=== PATIENT | male | born 1970 | race Caucasian/White ===

== ENCOUNTER 2020-04-15 10:08 | Emergency (ER) | payer OTHER ==
[2020-04-15 10:24] VITALS: RESP 18
[2020-04-15] MEDS ORDERED: ORPHENADRINE 30 MG/ML 2 ML VIAL IVP STA (10:40)
[2020-04-15] MEDS ORDERED: HYDROmorphone 1 MG/ML 1 ML SYRINGE IVP STA (10:40)
[2020-04-15] MEDS ORDERED: KETOROLAC 15 MG/ML 1 ML VIAL IVP STA (10:40)
--- NOTE | 2020-04-15 10:51 | ED ---
Back Pain HPI - General Chief Complaint: Back Pain/Injury Stated Complaint: Back Pain Time Seen by Provider: 04/15/20 10:29 Source: patient, RN notes reviewed Limitations: no limitations - History of Present Illness Initial Comments: 49-year-old male presents emergency Department with chief complaint of low back pain this has been going on for last 2-3 weeks. Patient states he has no back problems in the past. No prior surgeries. Patient denies any bowel, bladder incontinence or retention. Denies any saddle anesthesias or lower shunted paresthesias. Patient has pain in his right lower lumbar region and radiates down his right leg to his heel. Patient has been seen by several times ice PCP in which they did x-rays, given one shot of steroids, written prescription for [place]. Patient was given a prescription for an MRI but presents emergency Department as directed by PCP for pain control. 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 Patient states that he has a lot of wear and tear in his back. - Related Data Home Medications Medication Instructions Recorded Confirmed Aspirin EC [Ecotrin] 325 mg PO DAILY PRN 04/15/20 04/15/20 Previous Rx's Medication Instructions Recorded Orphenadrine [Norflex] 100 mg PO Q12H #14 tablet.er 04/15/20 predniSONE 50 mg PO DAILY #5 tab 04/15/20 Allergies Allergy/AdvReac Type Severity Reaction Status Date / Time No Known Allergies Allergy Verified 04/15/20 11:41 Review of Systems ROS Statement: Those systems with pertinent positive or pertinent negative responses have been documented in the HPI. ROS Other: All systems not noted in ROS Statement are negative. Past Medical History Past Medical History: No Reported History History of Any Multi-Drug Resistant Organisms: None Reported Past Surgical History: No Surgical Hx Reported Past Psychological History: No Psychological Hx Reported Smoking Status: Current every day smoker Past Alcohol Use History: None Reported Past Drug Use History: None Reported General Exam Limitations: no limitations General appearance: alert, in no apparent distress Head exam: Present: atraumatic, normocephalic, normal inspection Eye exam: Present: normal appearance, PERRL, EOMI. Absent: scleral icterus, conjunctival injection, periorbital swelling Neck exam: Present: normal inspection, full ROM. Absent: tenderness, meningismus, lymphadenopathy Respiratory exam: Present: normal lung sounds bilaterally. Absent: respiratory distress, wheezes, rales, rhonchi, stridor Cardiovascular Exam: Present: regular rate, normal rhythm, normal heart sounds. Absent: systolic murmur, diastolic murmur, rubs, gallop, clicks GI/Abdominal exam: Present: soft, normal bowel sounds. Absent: distended, tenderness, guarding, rebound, rigid Extremities exam: Present: other (lower extremity strength equal bilaterally, equal color equal warmth,strength is equal bilaterally patient does report pain with range of motion of right leg) Back exam: Present: normal inspection, tenderness, muscle spasm, paraspinal tenderness. Absent: full ROM (decreased range of motion secondary pain), vertebral tenderness Neurological exam: Present: alert, oriented X3, reflexes normal. Absent: motor sensory deficit Skin exam: Present: warm, dry, intact, normal color. Absent: rash Course Vital Signs 04/15/20 10:21 Temperature 98.8 F Pulse Rate 84 Respiratory 18 Rate Blood Pressure 139/91 O2 Sat by Pulse 98 Oximetry Medical Decision Making - Medical Decision Making patient reevaluated after pain meds patient is resting comfortably, patient was in the room patient states his pain is improved. Patient has no red flag symptoms. Patient advised to call MRI scheduling for an appointment. He is return for any worsening change in symptoms. Disposition Clinical Impression: Lumbar radiculopathy, acute Disposition: HOME SELF-CARE Condition: Stable Instructions (If sedation given, give patient instructions): Acute Low Back Pain (ED) Additional Instructions: Please return to the Emergency Department if symptoms worsen or any other concerns. Prescriptions: Orphenadrine [Norflex] 100 mg PO Q12H #14 tablet.er predniSONE 50 mg PO DAILY #5 tab Is patient prescribed a controlled substance at d/c from ED?: No Referrals: Joshua Alaniz DO [Primary Care Provider] - 1-2 days Juventino Marquez DO [Doctor of Osteopathic Medicine] - 1-2 days Time of Disposition: 11:45
[2020-04-15 12:11] VITALS: BP 133/81; PULSE 60; TEMP 98
== END 2020-04-15 12:11 | disposition home or self-care (01) ==
LOC: EC 10:08
DX: M54.16 Radiculopathy, lumbar region (principal); F17.200 Nicotine dependence, unspecified, uncomplicated
CPT/HCPCS: 99283; 96374; 96375 ×2; J2360; J1170; J1885

== ENCOUNTER → 2020-04-23 | Outpatient (CLI) | payer OTHER ==
--- NOTE | 2020-04-23 16:45 | MR ---
EXAMINATION TYPE: MR lumbar spine wo con DATE OF EXAM: 04/23/2020 COMPARISON: Film 04/22/2020 HISTORY: Low back pain x 4 weeks TECHNIQUE: Multiplanar, multisequence images of the lumbar spine were acquired. L1-L2: Normal disc appearance without desiccation. No herniation, protrusion or disc bulging. No ca nal stenosis is present. Foramina are patent bilaterally. L2-L3: Normal disc appearance without desiccation. No herniation, protrusion or disc bulging. No ca nal stenosis is present. Foramina are patent bilaterally. L3-L4: Normal disc appearance without desiccation. No herniation, protrusion or disc bulging. No ca nal stenosis is present. Foramina are patent bilaterally. L4-L5: There is loss of disc signal. Increased signal at the posterior aspect of the disc is consiste nt with an annular tear. Right posterior paracentral disc bulge contacts the anterior thecal sac. No significant foraminal encroachment. L5-S1: There is loss of disc signal. There is a right posterior paracentral disc herniation displacin g the right S1 nerve root, circumferential extension toward the right encroaches somewhat on the righ t neural foramen. There is an anterior lateral contact on the thecal sac due to a disc herniation, th ere is some encroachment suspected of the lateral recess Lumbar segments are intact. No paraspinal masses are identified. Conus medullaris has a normal appe arance. Lumbar vertebral bodies show preserved height and alignment. IMPRESSION: Large posterior right paracentral disc herniation L5-S1, degenerative disc disease as described
== END | disposition home or self-care (01) ==
LOC: RADMRIMAIN 06:37
PROVIDERS: ATTEND Orthopaedic Surgery
DX: M51.27 Other intervertebral disc displacement, lumbosacral region (principal); M51.36 Other intervertebral disc degeneration, lumbar region
CPT/HCPCS: 72148

== ENCOUNTER → 2020-04-30 | Outpatient (CLI) | payer OTHER ==
--- NOTE | 2020-04-30 14:14 | XR ---
EXAMINATION TYPE: XR chest 2V DATE OF EXAM: 04/30/2020 CLINICAL HISTORY: R06.2. TECHNIQUE: Frontal and lateral view of the chest. COMPARISON: None FINDINGS: The cardiomediastinal silhouette is within normal limits for size. Pulmonary vasculature i s normal. There is no focal air space opacity, pleural effusion, or pneumothorax seen. The osseous st ructures are intact. IMPRESSION: No acute cardiopulmonary process.
== END | disposition home or self-care (01) ==
LOC: RADXRWHC 10:17
PROVIDERS: ATTEND Internal Medicine
DX: R06.2 Wheezing (principal)
CPT/HCPCS: 71046

== ENCOUNTER → 2020-04-30 | Outpatient (CLI) | payer OTHER ==
[2020-04-30 16:23] LABS: Basophils # (A) 0.1 k/uL (0-0.2); Basophils % (A) 1 %; Eosinophils # (A) 0.2 k/uL (0-0.7); Eosinophils % (A) 2 %; HCT 53.5 % (39.0-53.0); HGB 18.2 gm/dL (13.0-17.5); Lymphocytes # (A) 2.9 k/uL (1.0-4.8); Lymphocytes % (A) 34 %; MCHC 34.1 g/dL (31.0-37.0); MCV 96.9 fL (80.0-100.0); Mean Platelet Volume 6.2; Monocytes # (A) 0.4 k/uL (0-1.0); Monocytes % (A) 4 %; Neutrophils # (A) 5.1 k/uL (1.3-7.7); Neutrophils % (A) 59 %; Platelet Count 230 k/uL (150-450); RBC 5.52 m/uL (4.30-5.90); RDW 13.3 % (11.5-15.5); WBC 8.7 k/uL (3.8-10.6)
[2020-04-30 16:31] LABS: ALT 92 U/L (4-49); AST 32 U/L (17-59); African American GFR (CKD) >90 (>60 ml/min/1.73 sqM); Albumin 4.2 g/dL (3.5-5.0); Alkaline Phosphatase 82 U/L (38-126); Anion Gap 6 mmol/L; Blood Urea Nitrogen 25 mg/dL (9-20); Calcium 9.5 mg/dL (8.4-10.2); Carbon Dioxide 25 mmol/L (22-30); Chloride 106 mmol/L (98-107); Glucose 101 mg/dL (74-99); Non-African American GFR(CKD) 79 (>60 ml/min/1.73 sqM); Potassium 4.4 mmol/L (3.5-5.1); Sodium 137 mmol/L (137-145); Total Bilirubin 0.5 mg/dL (0.2-1.3); Total Protein 6.7 g/dL (6.3-8.2)
[2020-04-30 16:39] LABS: Partial Thromboplastin Time 22.2 sec (22.0-30.0)
[2020-04-30 16:46] LABS: Cholesterol 222 mg/dL (<200); HDL Cholesterol 44 mg/dL (40-60); LDL Cholesterol,Calculated 119 mg/dL (0-99); Triglycerides 296 mg/dL (<150)
[2020-04-30 16:48] LABS: T4, Free (Free Thyroxine) 0.75 ng/dL (0.78-2.19)
== END | disposition home or self-care (01) ==
LOC: LABPAT 15:44
PROVIDERS: ATTEND Internal Medicine
DX: Z00.00 Encounter for general adult medical examination without abnormal findings (principal)
CPT/HCPCS: 36415; 80053; 80061; 83036; 84439; 84443; 85025; 85610; 85730

== ENCOUNTER → 2020-04-30 | Outpatient (CLI) | payer OTHER | END | disposition home or self-care (01) | LOC: LABPAT 10:13 | PROVIDERS: ATTEND Orthopaedic Surgery | DX: Z01.812 Encounter for preprocedural laboratory examination (principal) | CPT/HCPCS: 87070 ==

== ENCOUNTER 2020-05-04 06:09 | Day surgery (SDC) | payer OTHER ==
[2020-04-28 15:46] VITALS: BMI 30.7
[~2020-05-04 06:09] MED LIST: ACETAMINOPHEN TAB 500 MG TAB PO PRN; DEXAMETHASONE SOD PHOSPHATE 4 MG/ML 1 ML VIAL IV ONE; GABAPENTIN 300 MG CAP PO PRN; HYDROmorphone 0.5 MG/0.5 ML SYRINGE IVP PRN; LACTATED RINGERS 1,000 ML IV SCH; LIDOCAINE 1% (10MG/ML) FOR IV START INTRADERMA PRN; MIDAZOLAM 2 MG/2 ML VIAL IV PRN; ONDANSETRON 4 MG/2 ML VIAL IVP ONE; ONDANSETRON 4 MG/2 ML VIAL IVP PRN; TRANEXAMIC ACID 1,000 MG in SODIUM CHLORIDE 0.9% 100 ML IVPB PRN
--- NOTE | 2020-05-04 06:58 | P.HPOR ---
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 Patient denies any specific injury. He states that he has had low back pain for 4 weeks. He reports lower back pain that radiates into both of his legs. He notes that his legs give out when he tries to walk. He has been seen in the Emergency Room due to his back pain. Patient denies any bowel or bladder problems. Patient is taking [place] as needed for pain. Review of Systems 14 points review of systems completed and as stated in HPI, all other systems reviewed are negative. Constitutional: Denies chills, Denies fatigue, Denies fever Past Medical History Past Medical History: GERD/Reflux Additional Past Medical History / Comment(s): Back pain X4 weeks. History of Any Multi-Drug Resistant Organisms: None Reported Past Surgical History: No Surgical Hx Reported Past Anesthesia/Blood Transfusion Reactions: No Reported Reaction Additional Past Anesthesia/Blood Transfusion Reaction / Comment(s): Has never had general anesthesia. Past Psychological History: No Psychological Hx Reported Smoking Status: Current every day smoker Past Alcohol Use History: None Reported Additional Past Alcohol Use History / Comment(s): Has been smoking since 13 yrs old, 2 PPD. Past Drug Use History: Marijuana Additional Drug Use History / Comment(s): Occassionally uses Marajuana for pain. Aware no use 24 hrs prior to procedure. Additional History: Social History: Reviewed, see appropriate section of the chart for details. Social History: Smoking: current smoker. Smoking Amount: 1 PPD. Alcohol: none. . Family History: Reviewed, see appropriate section of the chart for details. Family History: Mother: alive & well. Father: alive & well. Sibling(s): alive & well. . Past Medical History: Reviewed, see appropriate section of the chart for details. none. Surgical / Procedural History: none listed by the patient. Current Medications: Rx: methocarbamoL 750 mg tablet Ref: 0. Instructions: take 1 tablet (750 mg) by oral route 3 times per day. Rx: methocarbamoL 750 mg tablet Ref: 0. Instructions: take 1 tablet (750 mg) by oral route 3 times per day. Rx: [place] Ref: 0. Rx: Orphendrine Ref: 0. Instructions: 100 mg. Rx: predniSONE 50 mg tablet Ref: 0. Instructions: take 0.5 mg/kg by oral route once daily. Rx: predniSONE 20 mg tablet Ref: 0. Instructions: Take 1 tablet twice daily for 4 days, then take 1 tablet once daily for. 4 days. Rx: predniSONE 20 mg tablet Ref: 0. Instructions: Take 1 tablet twice daily for 4 days and then take 1 tablet once daily. for 4 days. - Past Family History Father Family Medical History: No Reported History Medications and Allergies Home Medications Medication Instructions Recorded Confirmed Type Methocarbamol [Robaxin-750] 750 mg PO TID 04/28/20 04/28/20 History Allergies Allergy/AdvReac Type Severity Reaction Status Date / Time No Known Allergies Allergy Verified 04/28/20 15:25 Physical Examination Osteopathic Statement: *. No significant issues noted on an osteopathic structu ral exam other than those noted in the History and Physical/Consult. General: Awake, alert, appropriate for age, in no acute distress. HEENT: No unusual neck masses around region of lateral neck triangle, thyroid, supraclavicular groove Heart: Regular rate and rhythm, normal S1, S2 and no murmur/gallop. Lungs: Clear to auscultation bilaterally with no use of accessory muscles. Extremities: Skin warm and dry without acute lesions, coloration, temperature, skin intact, no tenderness or erythema Integument: Hairy patches: Absent Dorsal skin dimples: Absent Cafe au lait spots: Absent Surgical incisions: None Palpation: Please see Pain drawing on Intake sheet for further detail. Midline spinal tenderness: yes lumbar E6 Paralumbar tenderness: No E6 Parathoracic tenderness: No E6 Buttocks tenderness: No E6 Special findings: None POSTURAL and MUSCULO-SKELETAL EVALUATION: Coronal Balance: Neutral Recumbent testing: Patient is able to lay flat on back Sagittal Balance: Neutral Shoulder Profile: level Pelvic Girdle: level Neck ROM: Unrestricted Lumbar ROM: Unrestricted Shoulder ROM: Symmetric in abduction, ER/IR Hip ROM: Symmetric in abduction, adduction, ER/IR Knee ROM: Symmetric and intact in Flexion / extension Hands: Normal Feet: Normal VASCULAR STATUS : LEFT RIGHT Wrist Pulses intact intact Pedal Pulses (Dors. pedis & post.tibialis) intact intact Color normal normal Edema Absent Absent NEUROLOGIC EXAMINATION: Mental Status: Awake and alert, fully oriented, with normal attention, concentration and memory, and fluent, appropriate speech. Cranial Nerves: I: Olfactory not tested. II: Visual acuity normal, no visual field deficit noted with confrontation. III,IV: Normal pupillary reflexes & intact extraocular movements without nystagmus. V,: Intact symmetrical facial sensation. VII: Intact symmetrical facial motor movement VIII: Hearing intact. IX,X: Intact gag, swallow, & normal voice. XI: Sternocleidomastoid, trapezius function intact. XII: Tongue midline with normal movements. L'hermitte's Sign: Negative / absent Spurling'Sign: Absent bilaterally. Cubital percussion test: Absent bilaterally. Coty-Tinel sign - Carpal region: Absent bilaterally. Straight Leg Raising: Absent bilaterally. Crossed straight leg raise: negative O8 MOTOR EXAM (0-5/5, N/T) STRENGTH RIGHT LEFT Shoulder Abd (not part of the DOROTA score) 5 5 Elbow Flexors 5 5 Elbow Extensor 5 5 Wrist Dorsiflexors 5 5 Finger Abductor 5 5 Assistant Cook 5 5 Hip Flexor (Not part of DOROTA Motor score) 5 5 Knee Flexor 3 4+ Knee Extensor 3 4+ Ankle dorsiflexor 3 4+ Ankle plantarflexion 3 4+ Extensor hallucis 3 4+ REFLEXES(0-4/2, NT) RIGHT LEFT Upper Extremities 3 3 Lower Extremities 2 2 Pathological Reflexes RIGHT LEFT Martínez's Absent Absent Clonus Absent Absent Neg babinski b/l Muscle appearance: Normal Rectal Tone: Not tested Sensory system (0-4, N/T) Test type RU IRASEMA RL LL Joint-Position 2 2 2 2 Vibration 2 2 2 2 Pain & LT sense 2 2 2 2 Dermatomal Deficit: none none none none Gait and Functional Evaluation: Ambulatory aids: Wheelchair Romberg's test: Intact bilaterally Toe heel walk / heel-toe walk intact while maintaining satisfactory balance? No Squatting/straightening w/o assistance to a min of 60 degree knee flexion? No Single leg stance: intact Unable to assess Hand and finger dexterity intact bilaterally? yes Disdiadochokinesis examination negative bilaterally? yes Results XRAY: of the lumbar spine and pelvis today reveal; No fractures or dislocations. Maintained alignment. Mild L5-S1 spondylosis. Ap pelvis shows congruent FA joints, no dislocations, level pelvis. No fractures. MRI of the L spine shows large L5-S1 HNP with thecal and nural encroachment as well as L4-5 annular tearing and herniation that is causing some mild to mod erate stenosis. L5-S1 is causing severe stenosis and R sided foraminal stensosis. Patient's preoperative labs have been reviewed. There is nothing concerning at this time per these. The patient's preoperative cardiology evaluation as well as his preoperative PCP management was reviewed with the PCP over the phone. The patient is cleared per PCP and cardiology for surgical intervention. Assessment and Plan Assessment: 1. L5-S1 disc herniation, severe radiculopathy and RLE weakness 2. L4-L5 anular tear with disc herniation and stenosis Plan: Spine Surgery Risk Review Eduard Esteban presenting for evaluation of RLE weakenss, Severe low back pain, RLE readiculopathy. It was my pleasure to have seen and examined Eduard Esteban . In our visit today we have had a chance to go over subjective complaints, physical examination findings and treatments including the natural course history without intervention and various interventional options. The patients imaging demonstrates large L5-S1 HNP with severe stenosis as well as L4-5 stenosis and annular tearing. On physical exam, Eduard Esteban demonstrates severe tensioning signs, pain with ambulation, weakness in RLE 3/5 and severe r adicular pain. . I have explained to the patient that as their condition progresses it will cause further neurological deficits and eventual paralysis. Based on the patients imaging, physical exam, and the rapid progression and disabling nature of their symptoms, at this time I recommend surgery in the form or a: Lumbar decompression. I discussed the risk and benefits of this procedure at length with Eduard Etseban. The patient's friend agreed to considered pursuing the procedure abovementioned. Prior to surgery, she should follow up with her PCP (Cardio, ID, IM etc) for clearance. Questions were invited and answered, and the patient wishes to proceed as outlined below. Currently, I am recommendin.L4-S1 decompressive laminectomy with L5-S1 Microdiscectomy with use of intraoperative microscope. 2.Follow up with PCP for surgical clearance 3.Review of surgical risks and benefits as well as an educational packet on the proposed surgical procedure. Risks: All surgical procedures come with inherent risks, including those related to positioning, anesthesia, intraoperative findings, and postoperative complications. It is important to understand that surgery does not come with any guarantee of a successful outcome as complications and adverse events are always possible. The patient was given a handout in office today discussing the surgical procedure and risks associated with the intervention, both of which were discussed with the patient. These risks include but are not limited to the following: * Experiencing same, different or even worse symptoms in back, neck, arms, or legs compared to before surgery. Requiring further surgery or other forms of treatment presently or at some time in the future at same or other levels of the intended spine surgery. On an extreme but fortunately relatively rare basis severe complication such as blindness, stroke, heart attack, temporary and/or permanent nerve injury, paralysis, coma, or may occur, sometimes without known explanation. Surgical complications may include but are not limited to risk of infection, fluid accumulation in the surgical dissection site, including a seroma or hematoma, that requires additional surgery, wound drainage, bleeding, new numbness or weakness, vision changes/loss, spinal fluid leakage, non-healing and/or infected incision, headaches, difficulty or inability to swallow, hoarseness, hemopneumothorax, pneumothorax, impotence, retrograde ejaculation, vaginal dryness; injury to nerves, spinal cord, blood vessels, lymphatics or other vital organs (i.e., bowel injury, injury to the great vessels); heterotopic bone formation; complications related to the hardware such as screws, rods, cages including misplaced hardware, device failure, instrumentation at the wrong spine level, hardware fracture/breakage, or hardware loosening; vertebral failure of the spinal column above or below the newly placed hardware; retained surgical instrumentations or devices and the need for further surgery. * Medical risks of the planned spine surgery include but are not limited to generalized Infections to the whole body or local areas outside of the surgical site (sepsis), heart attack, bleeding, anaphylaxis, meningitis, seizure, epilepsy, hearing loss, burn boyce, laceration of the head or other areas of the body, bruising, hypersensitivity of the skin, bladder over distension; allergic reaction; shoulder injury related to positioning; fat, blood and air clots to other areas of the body like heart, lungs, brain; failure of internal organs such as lungs, kidneys, liver and excessive bleeding. If blood transfusions are necessary, note that transfusions may cause intolerance reactions such as anaphylaxis or other complex reactions. Despite best efforts, the results of spine surgery might not heal in terms of bone, soft tissues such as skin, fascia, ligaments, and joints. Additionally, in order to achieve best possible results, spine surgery may be carried out beyond the initially planned levels and involve decompression, fusion including insertion of hardware at levels other than the original intended area of surgical interest change some portions of the procedure in order to ensure the best possible outcomes. With spine surgery and spinal fusion, there are different off label uses of instrumentation (devices, implants and hardware) as well as biological substances (bone morphogenic proteins, demineralized bone matrix) as well as using extra bone from allograft sources (i.e. cadaver bone) or autograft (iliac crest bone, ribs, or the spine itself). The patient has been given information about these practices and their inherent risks and benefits. [facility] is an educational center that serves as a training facility for neurosurgical and orthopedic spine residents and fellows. Residents are physicians who are completing their surgical intensive training following medical school. They assist in the operating room with direct supervision of the attending surgeons. [place] are surgeons who have completed their training and eligible for board certification. They have opted for an elective year of more specialized training in their field. They assist in the operating room under the supervision of the attending surgeons. Physician assistants are medically trained surgical providers who function in the outpatient, inpatient, and operating room setting under the direct supervision of the attending surgeon. [facility] has multiple operating rooms with single and overlapping rooms running daily. They currently function under the required guidelines as produced by the Senate Finance Committee with regards to the overlapping rooms and will continue to comply with changes to this policy as they occur. The requirements include and are complied with as follows: (1) the critical portions of the overlapping rooms will not occur at the same time, (2) the attending physician will be physically present during the critical portions of the procedure and immediately available during the entire case, and (3) a back-up attending is designated should the primary attending not be immediately available. The patient has had a chance to review all the listed information, has been given print outs detailing this information, and has had all his/her questions answered to their satisfaction. It was my pleasure to have seen and examined Eduard Esteban. In our visit today we have had a chance to go over my understanding of our patient's current condition, the natural course history without intervention and various interventional options. Questions were invited and answered, and the patient wishes to proceed as outlined above. I have seen and examined the patient for 25 minutes and we have spent more than 50% of the time in repeat and detailed counseling about the patient's condition, its natural course history with out and as much as can be predicted with surgery and re-review of various surgical treatment options. In conclusion, Eduard Esteban and his friend requested we proceed with the above suggested surgery and are willing to accept risks and limitations of the suggested surgery as nature of the disease process and our best attempts at treatment for the condition. Thank you again for allowing us to be part of your patient's care. Please don't hesitate to contact me if you have any further questions. Signed and authenticated by: Juventino James [facility] [address] [place], [address] [address] Time with Patient: Greater than 30
[2020-05-04] MEDS ORDERED: GLYCOPYRROLATE 0.2 MG/ML 2 ML VIAL ONE (07:25)
[2020-05-04] MEDS ORDERED: SODIUM CHLORIDE 0.9% 100 ML BAG ONE (07:25)
[2020-05-04] MEDS ORDERED: MIDAZOLAM 2 MG/2 ML VIAL ONE (07:25)
[2020-05-04] MEDS ORDERED: fentaNYL (PF) 50 MCG/ML 2 ML AMP ONE (07:25)
[2020-05-04] MEDS ORDERED: ROCURONIUM 10 MG/ML (10 ML VIAL) IV ONE (07:25)
[2020-05-04] MEDS ORDERED: NEOSTIGMINE 1 MG/ML 10 ML VIAL ONE (07:25)
[2020-05-04] MEDS ORDERED: KETAMINE 10 MG/ML 20 ML VIAL ONE (07:25)
[2020-05-04] MEDS ORDERED: TRANEXAMIC ACID 1,000 MG/10 ML VIAL ONE (07:25)
[2020-05-04] MEDS ORDERED: PROPOFOL 10 MG/ML 20 ML VIAL IV ONE (07:25)
[2020-05-04] MEDS ORDERED: LIDOCAINE 1% INJ 10MG/ML (20 ML MDV) ONE (07:25)
[2020-05-04] MEDS ORDERED: GELATIN SPONGE,ABSORB (LARGE) 1 EACH SPONGE TOPICAL ONE (08:13)
[2020-05-04] MEDS ORDERED: THROMBIN (BOVINE) 5,000 UNIT VIAL MISCELLANE ONE (08:14)
[2020-05-04] MEDS ORDERED: BUPIVACAINE (PF) 0.25% 30 ML VIAL SQ ONE (08:14)
[2020-05-04] MEDS ORDERED: VANCOMYCIN 1,000 MG VIAL MISCELLANE ONE (08:17)
[2020-05-04] MEDS ORDERED: TRIAMCINOLONE ACETONIDE 40 MG/ML 1 ML VIAL IM ONE (09:10)
[2020-05-04] MEDS ORDERED: LACTATED RINGERS 1,000 ML IV ONE (09:40)
--- NOTE | 2020-05-04 10:07 | FL ---
EXAMINATION TYPE: FL guidance operating room, XR lumbar spine 2 or 3V DATE OF EXAM: 05/04/2020 CLINICAL HISTORY: Low back pain. TECHNIQUE: Fluoroscopy. Intraoperative 2 views lumbar spine COMPARISON: Outside lumbar spine x-ray April 22, 2020. MRI lumbar spine April 23, 2020. FINDINGS: Fluoroscopic guidance was provided during lumbar laminectomy/discectomy procedure performe d by Dr. Marquez. A total of 14 seconds of fluoroscopic time was utilized during the procedure an d 3 spot intraoperative images are acquired. Intraoperative images obtained show advancement of surgical hardware from posterior approach targetin g lumbosacral junction. IMPRESSION: As Above.
[2020-05-04 10:23] VITALS: TEMP 97.4
[2020-05-04] MEDS ORDERED: HYDROmorphone 1 MG/ML 1 ML SYRINGE IVP ONE ×6 (10:30→10:55)
[2020-05-04 11:04] VITALS: RESP 16
[2020-05-04 13:11] VITALS: BP 142/86; PULSE 73
--- NOTE | 2020-05-05 07:35 | P.OP ---
Date of Procedure: 05/04/20 Preoperative Diagnosis: L5-S1 HNP, severe stenosis Postoperative Diagnosis: Same Procedure(s) Performed: 1. L5-S1 R laminotomy and microdiscectomy 2. Use of intraoperative microscope Implants: None Anesthesia: GETA Surgeon: Juventino Marquez (JULIOCESAR Chavez was present for the entire case and was necessary due to the complexity of the case. ) Estimated Blood Loss (ml): 75 IV fluids (ml): 850 Urine output (ml): 0 Pathology: none sent Condition: stable Disposition: PACU Indications for Procedure: This 49 year old male presents with back pain. Patient denies any specific injury. He states that he has had low back pain for 4 weeks. He reports lower back pain that radiates into both of his legs. He notes that his legs give out when he tries to walk. He has been seen in the Emergency Room several times due to his back pain was prescribed medications, prednisone, antiinflammatories, muscles relaxers with no relief. He presented to office in a wheel chair because of the pain, weakness and severe radiculopathy he was having. Patient denies any bowel or bladder problems. Patient is taking [place] currently as needed for pain.He denies any perineal numbness/tingling. Operative Findings: Large R sided L5-S1 HNP causing tensioning of nerve root and dura. Description of Procedure: The patient was seen and examined in the preoperative area. All preoperative protocols were followed. Informed consent was obtained risks and benefits of the procedure were discussed at length. Risks including bleeding infection damage to the surrounding tissue and risk of reoperation were discussed with the patient. Risk of anesthesia up to and including was a discussed with the patient. These are outlined in the risk review. They were willing to accept these risks and all of the risks of surgery. The patient was given a weight- based dose of antibiotics in the form of 2 g Ancef IVPB 1. The patient was seen and evaluated by the anesthesia team who deemed them fit for surgery. The site was marked, the patient was willing to proceed with the procedure. The patient was transferred to the operative suite by the Department of anes thesia. They were then drifted off to sleep by the department anesthesia Gen. endotracheal intubation. The patient tolerated this well. . Once confirmation of lines and ventilation the patient was transferred to a prone trios table very carefully. All bony prominences including wrists, elbows, axilla, chest, hips, and thighs, and feet were padded very well. Special attention was paid to the g enitalia and these were padded accordingly. SCDs were placed on bilateral lower extremities and were connected. Arms were well padded and placed on arm boards up and out in the 9090 position and well-padded. Once in position, again we confirmed good ventilation capabilities and that lines were running appropriately. The patient's lumbar spine was then exposed. 1010s were placed outlining the incision site. Standard alcohol was used to clean the incision site and allowed to dry. C-arm was used to biomark the patient and confirm level for incision which was marked with a skin marker. Operative briefing was performed with all teams and everyone in agreement to proceed. The patient was then prepped and draped in a normal sterile fashion. Timeout was then performed and all parties were in agreement with the procedure to be performed. The area was then infiltrated with quarter percent marcaine without epinephrine. Sharp incision was made over the previously marked area and the patient's lumbar spine. Dissection was taken down with electrocautery to the lumbosacral fascia which was identified and cleaned. A unilateral right sided subperiosteal dissection was then made over the L5 lamina to expose L5-S1 facet joint which was maintained intact. The lamina of L5 as well as S1 were identified as well as the interlaminar space. Lateral fluoroscopy with a penfield 4 marker conf irmed the level of interest. A laminotomy was then made in the L5 lamina as well as the superior S1 lamina. The ligamentum flavum was removed from this area as well as excess bone. There was exuberent hypertrophy of the ligamentum in this area. Partial Medial facetectomy was also performed for the sake of visualization and for space to perform the procedure due to the size of the disc herniation. The nerve root and dura were then carefully mobilized with a penfield and a nerve root retractor placed to protect them. A 15 blade was then used to incise the annulus to allow for extrusion of a large fragment of disc. This was then removed in its entirety. A 2-0 down biter was used to create space and pushed any extra fragments anterior back into the disc space. A Liss was then used to confirm that there was good space anterior to the thecal sac and that it was not tensioned and there was no compression. Angled pituitary was used to remove disc from the medial portion and contralateral side under the annulus to ensure plenty of space for the thecal sac and roots. Meticulous hemostasis was performed using electrocautery as well as FloSeal. The disc space was then irrigated with normal sterile saline. FloSeal was then placed in the wound was copiously irrigated with 3L normal sterile saline. 40 mg of Kenalog was then placed over the laminotomy site and the nerve to allow for decrease inflammation. The wound was again inspected meticulous hemostasis had been performed the dura was no longer tented and the nerve root was free. Retractors were then removed the fascia was closed with #1 Vicryl followed by 0 Vicryl 2-0 Vicryl and 3-0 Monocryl. This is then cleaned and dressed sterilely with exofin tape Telfa and Tegaderm. The patient was transferred back to her hospital bed atraumatically. Drain continued to hold suction and were in good position. Patient was then awakened and extubated by the department of anesthesia having tolerated the procedure very well with no complications. She was transferred to the postoperative care unit in stable condition.
== END 2020-05-04 14:03 | disposition home health service (06) ==
LOC: OR 06:09
PROVIDERS: ATTEND Orthopaedic Surgery
DX: M51.17 Intervertebral disc disorders with radiculopathy, lumbosacral region (principal); M48.07 Spinal stenosis, lumbosacral region; M47.27 Other spondylosis with radiculopathy, lumbosacral region; K21.9 Gastro-esophageal reflux disease without esophagitis; F17.210 Nicotine dependence, cigarettes, uncomplicated; R60.9 Edema, unspecified; K08.109 Complete loss of teeth, unspecified cause, unspecified class; Z79.899 Other long term (current) drug therapy; Z79.891 Long term (current) use of opiate analgesic; Z79.1 Long term (current) use of non-steroidal anti-inflammatories (NSAID); Z87.828 Personal history of other (healed) physical injury and trauma; Z82.49 Family history of ischemic heart disease and other diseases of the circulatory system
CPT/HCPCS: 72100; 63030; C1762; J2250; J3370; J1100; J3301; J2710; J0690; J2405; J2001; J3010; J1170; J2704

== ENCOUNTER → 2023-08-23 | Outpatient (CLI) | payer BC ==
[2023-08-23 14:33] VITALS: BP 126/74; PULSE 85; RESP 16; TEMP 98.3
--- NOTE | 2023-08-23 14:44 | P.SLEEP ---
History of Present Illness DATE: 08/23/2023 CONSULTATION/NEW PATIENT EVALUATION HISTORY OF PRESENT ILLNESS/SLEEP-WAKE EVALUATION: 52-year-old gentleman had b een evaluated in the sleep center for possible obstructive sleep apnea hypopnea syndrome. SLEEP SCHEDULE: Usually sleep schedule from 10:30 PM to 3:45 AM on working days and until 4 AM on the weekend. FALLING ASLEEP: Sometimes patient has difficulties with falling asleep. DURING SLEEP: Patient denied any awakenings from sleep. No history of hypnogogical hallucinations, sleep paralysis, or cataplexy. DURING THE DAY/WAKE STATE: Patient denied any significant excessive daytime sleepiness. [place] sleepiness scale is 3. Patient does not take naps. PAST MEDICAL HISTORY: Hypertension, hypothyroidism, hyperlipidemia. PAST SURGICAL HISTORY: Back surgery. MEDICATIONS: Simvastatin, levothyroxine, amlodipine. SOCIAL HISTORY: Positive for smoking 38 years 2 pack a day, alcohol consump tion occasional. FAMILY HISTORY: See below. REVIEW OF SYSTEMS: No fevers. No double vision. No recent chest pain. No shortness of breath. No abdominal pain. No bleeding episodes. No blood in urine. No seizure episodes. PHYSICAL EXAMINATION: GENERAL: A pleasant patient without any distress. VITAL SIGNS: See below. HEENT: PERRLA, EOMI. Evaluation of oropharynx showed tongue protrudes midline, low position of soft palate Mallampati 4, retrognathia. NECK: Supple. No JVD. Thyroid is not palpable. 19 inches in circumference. LUNGS: Clear to percussion and to auscultation. Good air exchange. No wheezing or rhonchi. HEART: S1, S2 regular. No murmurs, gallops or rubs. ABDOMEN: Soft and nontender. Bowel sounds are present. No organomegaly appreciated. EXTREMITIES: No clubbing or cyanosis. PLASMA SPECIALIST: Awake, alert, and oriented x3. Cranial nerves 2 to 7 intact. There is no fasciculation or atrophy noted. No focal deficits observed. ASSESSMENT: 1. Extremely low position of soft palate Mallampati 4, wide neck 19 inches in circumference. Obstructive sleep apnea hypopnea syndrome. 2. Obesity, BMI 38.5. 3. Hypertension. 4. Hyperlipidemia. 5 hypothyroidism. 6 . 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 7. Smoker for 76 pack years, continue smoking. PLAN: 1. Home sleep apnea test for evaluation of patient's breathing during sleep. 2. Following plan after reading sleep study. 3. Preferable position during sleep on the side. 4. No driving if patient feels any sleepiness. Patient is aware of civil and criminal liability for unsafe driving. 5. Sleep hygiene with regular sleep time for at least 7.5-8 hours. 6. Watching and losing weight. Thank you very much for referring this patient for consultation. Sincerely, Jason Xavier MD, PhD, FAASM. Diplomat of [place] [employer], Sleep Medicine Board by [place] [employer] [place] [employer] Finish Production Manager of [facility] [place] Past Medical History Past Medical History: GERD/Reflux Additional Past Medical History / Comment(s): Back pain X4 weeks. History of Any Multi-Drug Resistant Organisms: None Reported Past Surgical History: Back Surgery Past Anesthesia/Blood Transfusion Reactions: No Reported Reaction Additional Past Anesthesia/Blood Transfusion Reaction / Comment(s): Has never had general anesthesia. Past Psychological History: No Psychological Hx Reported Smoking Status: Current every day smoker Past Alcohol Use History: None Reported Additional Past Alcohol Use History / Comment(s): Has been smoking since 13 yrs old, 2 PPD. Past Drug Use History: Marijuana Additional Drug Use History / Comment(s): Occassionally uses Marajuana for pain. Aware no use 24 hrs prior to procedure. - Past Family History Father Family Medical History: No Reported History Medications and Allergies Home Medications Medication Instructions Recorded Confirmed Type methocarbamoL [Robaxin-750] 750 mg PO TID 04/28/20 05/04/20 History Cyclobenzaprine [Flexeril] 10 mg PO TID PRN #40 tab 05/04/20 Rx Ibuprofen [Motrin] 800 mg PO Q8H PRN #90 tab 05/04/20 Rx cefaDROXiL [Duricef Susp] 500 mg PO BID #6 ml 05/04/20 Rx Sennosides/Docusate Sodium [Senna 1 each PO DAILY PRN 08/23/23 History Plus 8.6-50 mg Softgel] Simvastatin 5 mg PO 08/23/23 History amLODIPine BESYLATE [Norliqva] 1 mg PO DAILY 08/23/23 08/23/23 History Allergies Allergy/AdvReac Type Severity Reaction Status Date / Time No Known Allergies Allergy Verified 05/04/20 06:53 Physical Exam Vitals: Vital Signs Temp Pulse Resp BP Pulse Ox 08/23/23 14:13 98.3 F 85 16 126/74 96 Intake and Output 08/22/23 08/23/23 08/23/23 22:59 06:59 14:59 Other: Weight 113.852 kg Sleep Note - Sleep Data ESS Total: 3 - Sleep Note Sleep Note: Temperature: 98.3 F Pulse Rate: 85 Respiratory Rate: 16 Blood Pressure: 126/74 SpO2: 96 Height: 5 ft 8 in Weight: 113.852 kg BMI: Neck Circumference: 19
== END ==
LOC: 3 N SLEEP 13:46
PROVIDERS: ATTEND Internal Medicine
DX: G47.33 Obstructive sleep apnea (adult) (pediatric) (principal); E66.9 Obesity, unspecified; I10 Essential (primary) hypertension; E78.5 Hyperlipidemia, unspecified; E03.9 Hypothyroidism, unspecified; F17.210 Nicotine dependence, cigarettes, uncomplicated; Z79.890 Hormone replacement therapy; Z68.38 Body mass index [BMI] 38.0-38.9, adult; Z79.899 Other long term (current) drug therapy
CPT/HCPCS: 99211

== ENCOUNTER → 2023-12-28 | Outpatient (CLI) | payer BC ==
--- NOTE | 2023-12-31 10:51 | P.PCN ---
Description of Procedure: CLINICAL: A home sleep apnea test has been done for confirmation of possible obstructive sleep apnea-hypopnea syndrome. DESCRIPTION OF PROCEDURE: RESULTS: Recording time was 6 hours 16 minutes. Evaluation time was 6 hours 4 minutes. Evaluation time is sufficient for making conclusion about results of the test. Raw data of sleep recording has been reviewed and is adequate. Respiratory channel showed 13 apneas and 73 hypopneas. Apnea-hypopnea index was 14.1 per hour. Pulse rate in the range between minimum 46, maximum 104, average 75 by computer calculation. Lowest desaturation was 84%. IMPRESSION: 1. Obstructive Sleep Apnea Hypopnea Syndrome. 2. Hypertension. Please see other impressions from consultation. PLAN: 1. The patient will be started on auto-PAP treatment for correction of respiratory abnormallities during sleep. 2. I will see patient for follow up visit to discuss results of the test, evaluate clinical response on treatment with PAP therapy and make any necessary adjustments related to mask fitting, pressure, and humidification. 3. Watching and losing weight. 4. Sleep hygiene with regular time in bed for at least 8 hours. 5. No driving if feeling any sleepiness. Thank you very much for allowing me to participate in the management of your patient. Sincerely, Jason Xavier MD, PhD, FAASM Diplomat of [place] [employer] Sleep Medicine Board of [place] [employer] Rn Assessment of [facility] [place] cc: Miguel Marks DO
== END ==
LOC: 3 N SLEEP 13:28
PROVIDERS: ATTEND Internal Medicine
DX: G47.33 Obstructive sleep apnea (adult) (pediatric) (principal); I10 Essential (primary) hypertension; Z79.899 Other long term (current) drug therapy

== ENCOUNTER → 2024-03-20 | Outpatient (CLI) | payer BC ==
[2024-03-20 14:37] VITALS: BP 155/79; PULSE 87; RESP 18; TEMP 98.4
--- NOTE | 2024-03-20 15:08 | P.PROGSL ---
Subjective DATE: 03/20/2024 FOLLOW UP VISIT. Patient with obstructive sleep apnea hypopnea syndrome return to sleep center for follow-up visit. Recently patient had sleep study which documented obstructive sleep apnea hypopnea syndrome. Patient was initiated on PAP therapy and today is first visit after treatment was started. I explained results of sleep studies to the patient in details Patient was able to use PAP equipment every night for the whole night. The patient does not have significant problems with the mask, PAP pressure and humidification. [place] sleepiness scale is 0. I checked information from PAP unit. PAP unit pressure 5-14, average 10.4 cm H2O. Usage is 100% and 90% for more then 4 hours, average 5 hours per night. Leak is 9.5 l/m, which is in acceptable range. Apnea Hypopnea Index is 0.8, which is normal. MEDICATIONS:1. Simvastatin 20 mg once a day, levothyroxine 25 mcg once a day, amlodipine 2.5 mg once a day During physical exam: GENERAL: A pleasant patient without any distress. VITAL SIGNS: Please see below, weight 245.4 pounds. HEENT: PERRLA, EOMI.low position of soft palate, Mallapati 4 . NECK: Supple. No JVD. LUNGS: Clear to percussion and to auscultation. Good air exchange. No wheezing or rhonchi. HEART: S1, S2 regular. ABDOMEN: Soft and nontender. Slightly obese EXTREMITIES: No clubbing or cyanosis. WARE FINISHER: Awake, alert, and oriented x3. No focal deficit. Impressions: 1. Obstructive sleep apnea-hypopnea syndrome. Patient demonstrated great compliance with treatment, benefiting from treatment. 2. Obesity. 3. Hypertension. 4. Hyperlipidemia. 5. Hypothyroidism. 6. pole truck driver. 7. Smoker for about 76 pack years, continue smoking. Plan: 1. Continue using PAP equipment every night for the whole night. 2. To change air filter at least 1-2 times per month. 3. PAP unit should stay lower then position of the head. 4. Advised patient to remove all remaining water from humidifier canister daily and make it dry after each usage. Refill canister with fresh distilled water before each usage. 5. Sleep hygiene with regular time in bed for at least 8 hours. 6. Precautions related to driving. No driving if feel any sleepiness. 7. I will maintain prescription for PAP supplies including mask, tube, filters. 8. Follow up visit in 6 months or earlier if patient has any problems. 9. Watching and weight. Thank you very much for allowing me to participate in the management of your patient. Jason Xavier MD, PhD, FAASM. Diplomat of [place] [employer], Sleep Medicine Board by [place] [employer] S[employer] Cutting Machine Operator of [facility] [place] Objective - Vital Signs Vital Signs: Vital Signs Temp 98.4 F 03/20/24 14:36 Pulse 87 03/20/24 14:36 Resp 18 03/20/24 14:36 BP 155/79 03/20/24 14:36 Pulse Ox 96 03/20/24 14:36 FiO2 Intake & Output 03/19/24 03/20/24 03/20/24 18:59 06:59 18:59 Weight 111.244 kg Home Medications: Home Medications Medication Instructions Recorded Confirmed Type methocarbamoL [Robaxin-750] 750 mg PO TID 04/28/20 05/04/20 History Cyclobenzaprine [Flexeril] 10 mg PO TID PRN #40 tab 05/04/20 Rx Ibuprofen [Motrin] 800 mg PO Q8H PRN #90 tab 05/04/20 Rx cefaDROXiL [Duricef Susp] 500 mg PO BID #6 ml 05/04/20 Rx Sennosides/Docusate Sodium [Senna 1 each PO DAILY PRN 08/23/23 History Plus 8.6-50 mg Softgel] Simvastatin 5 mg PO 08/23/23 History amLODIPine BESYLATE [Norliqva] 1 mg PO DAILY 08/23/23 08/23/23 History
== END ==
LOC: 3 N SLEEP 14:23
PROVIDERS: ATTEND Internal Medicine
CPT/HCPCS: 99212